=== PATIENT | male | born 1940 | race Caucasian/White ===

== ENCOUNTER 2023-10-11 15:57 | Emergency (ER) | payer MEDICARE, OTHER ==
[2023-10-11 16:42] LABS: BASOPHILS ABSOLUTE AUTO 0.06 K/uL (0.00-0.20); BASOPHILS PERCENT AUTO 0.6 % (0.0-2.0); EOSINOPHILS ABSOLUTE AUTO 0.26 K/uL (0.00-0.50); EOSINOPHILS PERCENT AUTO 2.6 % (0.0-5.0); HEMATOCRIT 38.9 % (39.0-49.0); HEMOGLOBIN 13.3 g/dL (13.1-16.8); LYMPHOCYTES ABSOLUTE AUTO 2.05 K/uL (0.50-3.50); LYMPHOCYTES PERCENT AUTO 20.4 % (10.0-50.0); MEAN CORPUSCULAR HEMOGLOBIN 31.6 pg (28.2-33.3); MEAN CORPUSCULAR HGB CONC 34.2 g/dL (31.7-36.0); MEAN CORPUSCULAR VOLUME 92.4 fL (84.0-98.0); MONOCYTES ABSOLUTE AUTO 0.81 K/uL (0.00-1.00); NEUTROPHILS ABSOLUTE AUTO 6.89 K/uL (1.40-7.00); NEUTROPHILS PERCENT AUTO 68.4 % (45.0-80.0); PLATELET COUNT,PLT 165 K/uL (150-350); RED BLOOD CELL COUNT 4.21 M/uL (4.33-5.41); RED CELL DISTRIBUTION WIDTH 15.4 % (11.2-14.1); WHITE BLOOD CELL COUNT,WBC 10.1 K/uL (4.0-10.2)
[2023-10-11 17:02] LABS: ALANINE AMINOTRANSFERASE,ALT 21 U/L (12-78); ALBUMIN 3.4 g/dL (3.4-5.0); ALKALINE PHOSPHATASE 63 IU/L (46-116); ASPARTATE AMNIOTRANSFERASE,AST 25 U/L (15-37); BILIRUBIN TOTAL 0.8 mg/dL (0.2-1.0); BLOOD UREA NITROGEN,BUN 15 mg/dL (7-18); CALCIUM 8.1 mg/dL (8.5-10.1); CARBON DIOXIDE,CO2 25.6 mmol/L (21.0-32.0); CHLORIDE,CL 97 mmol/L (98-107); CREATININE 1.57 mg/dL (0.51-1.17); GLUCOSE RANDOM 134 mg/dL (70-99); PROTEIN TOTAL,TP 8.2 g/dL (6.4-8.2); SODIUM,NA 133 mmol/L (136-145)
[2023-10-11 17:03] LABS: ANION GAP 14.4 meq/L (7-15); ESTIMATED GFR 44 mL/min (>=60)
[2023-10-11] MEDS ORDERED: Lidocaine 2% with EPINEPHrine 1:100,000 20 ML MDV INJECT ONE (17:59)
[2023-10-11] MEDS ORDERED: Cephalexin 500 MG Cap PO ONE (19:25)
[2023-10-11] MEDS ORDERED: Bacitracin Oint 1 GM U/D Packet TOP ONE (19:25)
[2023-10-11] MEDS ORDERED: Take Home: Cephalexin 500 MG Cap, 6 Cap Pack PO ONE (19:35)
== END 2023-10-11 20:01 | disposition home or self-care (01) ==
LOC: LL.ED 15:57
DX: S01.81XA Laceration without foreign body of other part of head, initial encounter (principal); S02.2XXB Fracture of nasal bones, initial encounter for open fracture; Z87.891 Personal history of nicotine dependence; W00.9XXA Unspecified fall due to ice and snow, initial encounter
CPT/HCPCS: 12016; 36415; 70450; 70486; 72125; 80053; 85025; 99284; A9270-GY; J3490

== ENCOUNTER 2025-04-27 21:16 | Emergency (ER) | payer MEDICARE ==
[2025-04-27 21:36] LABS: BASOPHILS ABSOLUTE AUTO 0.10 K/uL (0.00-0.20); BASOPHILS PERCENT AUTO 1.8 % (0.0-2.0); EOSINOPHILS ABSOLUTE AUTO 0.00 K/uL (0.00-0.50); EOSINOPHILS PERCENT AUTO 0.0 % (0.0-5.0); IMMATURE GRAN ABSOLUTE AUTO 0.72 10^3/uL (0.00-0.04); IMMATURE GRAN PERCENT AUTO 12.9 % (0.0-0.4); LYMPHOCYTES ABSOLUTE AUTO 0.77 K/uL (0.50-3.50); LYMPHOCYTES PERCENT AUTO 13.8 % (10.0-50.0); MONOCYTES ABSOLUTE AUTO 0.25 K/uL (0.00-1.00); MONOCYTES PERCENT AUTO 4.5 % (2.0-14.0); NEUTROPHILS ABSOLUTE AUTO 3.74 K/uL (1.40-7.00); NEUTROPHILS PERCENT AUTO 67.0 % (45.0-80.0); PLATELET COUNT,PLT 221 K/uL (150-350); RED BLOOD CELL COUNT 2.65 M/uL (4.33-5.41); RED CELL DISTRIBUTION WIDTH 17.8 % (11.2-14.1); WHITE BLOOD CELL COUNT,WBC 5.6 K/uL (4.0-10.2)
[2025-04-27 21:58] LABS: ALANINE AMINOTRANSFERASE,ALT 14 U/L (12-78); ASPARTATE AMNIOTRANSFERASE,AST 27 U/L (15-37); BILIRUBIN TOTAL 1.0 mg/dL (0.2-1.0); BLOOD UREA NITROGEN,BUN 22 mg/dL (7-18); CARBON DIOXIDE,CO2 21.7 mmol/L (21.0-32.0); CHLORIDE,CL 98 mmol/L (98-107); CREATININE 1.72 mg/dL (0.51-1.17); GLUCOSE RANDOM 159 mg/dL (70-99); POTASSIUM,K 4.2 mmol/L (3.5-5.1); PRO B-TYPE NATRIUR PEPT,BNPPRO 301 pg/mL (0-125); PROTEIN TOTAL,TP 8.1 g/dL (6.4-8.2); SODIUM,NA 132 mmol/L (136-145)
[2025-04-27 22:02] LABS: ESTIMATED GFR 39 mL/min (>=60)
[2025-04-27 22:14] LABS: INR 1.2 (0.9-1.1); PTT,PARTIAL THROMBOPLSTIN TIME 23.2 SEC (23.8-34.4)
[2025-04-27] MEDS: Iopamidol 755 Mg/ML 100 ML Bottle IVPUSH ONE (22:59)
== END 2025-04-28 01:32 ==
LOC: LL.ED 21:16
DX: D64.9 Anemia, unspecified (principal); L98.9 Disorder of the skin and subcutaneous tissue, unspecified; I12.9 Hypertensive chronic kidney disease with stage 1 through stage 4 chronic kidney disease, or unspecified chronic kidney disease; N18.9 Chronic kidney disease, unspecified; E78.00 Pure hypercholesterolemia, unspecified; Z86.73 Personal history of transient ischemic attack (TIA), and cerebral infarction without residual deficits; Z79.82 Long term (current) use of aspirin; Z79.899 Other long term (current) drug therapy
CPT/HCPCS: 36415; 71045; 71275; 74177; 80053; 83605; 83735; 83880; 84484; 85025; 85379; 85610; 85730; 87040; 87070; 87186; 87205; 93005; 93010; 96361; 96365; 96366; 96375; 99284; 99285; A9270; J0696; J3373; J7030; J7040; Q9967

== ENCOUNTER 2025-09-16 08:44 | Day surgery (SDC) | payer MEDICARE ==
[~2025-09-16 08:44] MED LIST: Midazolam 1 MG/ML 2 ML SDV ONE; Propofol 200 MG/20 ML SDV ONE; Sodium Chloride 0.9% 10 ML Syringe FLUSH PRN
[2025-09-16] MEDS: Lactated Ringers 1,000 ML IV SCH (09:46)
== END 2025-09-16 11:36 | disposition home or self-care (01) ==
LOC: LL.SDS 08:44
PROVIDERS: ATTEND Surgery
DX: K21.00 Gastro-esophageal reflux disease with esophagitis, without bleeding (principal); D64.9 Anemia, unspecified; E66.9 Obesity, unspecified; R53.1 Weakness; Z68.32 Body mass index [BMI] 32.0-32.9, adult; Z79.899 Other long term (current) drug therapy; Z53.8 Procedure and treatment not carried out for other reasons
CPT/HCPCS: 43235; J1596; J2250; J2704; J7120; 00731; 99100